=== PATIENT | male | born 1935 | race Caucasian/White ===

== ENCOUNTER → 2020-01-01 | Outpatient (CLI) | payer MEDICARE ==
[2015-04-12 23:00] VITALS: BP 137/82
[~2020-01-01] MED LIST: AMLO10TA8 PO; BENA20TA4 PO; CHOL400T36 PO; DONE10TA7 PO; FURO20TA3 PO; LATA2.5D3 EACHEYE; LOSA100T14 PO; MECL-75 PO; MELO15TA23 PO; MEMA10TA56 PO; PRAV80TA2 PO; TAMS0.4C97 PO
== END | disposition home or self-care (01) ==
LOC: LAB 14:47
PROVIDERS: ATTEND Registered Nurse
DX: Z03.818 Encounter for observation for suspected exposure to other biological agents ruled out (principal)
CPT/HCPCS: 87635

== ENCOUNTER → 2020-01-05 | Day surgery (SDC) | payer MEDICARE ==
[~2020-01-05] MED LIST changes: +IPRATRPIUM/ALBUTEROL 0.5/2.5MG 3 ML NEBU. NEB PRN; +IV RINGERS SOLUTION,LACTATED 1,000 ML IV SCH; +PROPOFOL 10,000 MCG/ML (20ML) VIAL IV ONE
[2020-01-05 11:01] VITALS: BP 132/64
--- NOTE | 2020-01-07 12:06 | PATHOLOGY ---
[facility] Accession Number: [id number] . 01 Material submitted: . PART A: colon - ASCENDING COLON CANCER. Modifiers: ascending PART B: colon - TRANSVERSE POLYP. Modifiers: transverse PART C: colon - SIGMOID POLYP. Modifiers: sigmoid . 01 Clinical history: . None provided . 02 Diagnosis: A. 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 . B. Colon biopsies, transverse colon polyp: - Tubular adenoma showing coagulation artifact. . C. Colon biopsies, sigmoid polyp: - Adenocarcinoma, moderately-well differentiated. . (JPM:richard; 01/06/2020) [facility] 01/06/2020 1621 Local . 02 Comment: Sections of the ascending colon biopsies focally reveal irregular malignant glands infiltrating an inflamed reactive stroma. There are associated segments of tubular adenoma showing focal high-grade dysplasia. . Sections of the transverse colon biopsies reveal a tubular adenoma showing coagulation artifact. There is no evidence of malignancy. . Sections of the sigmoid colon biopsies reveal irregular malignant glands infiltrating an inflamed reactive desmoplastic stroma. A few of the malignant glands are distended with mucin. . The case is also co-reviewed by Dr. Castaneda, who concurs with the diagnosis. . (JPM:richard; 01/06/2020) . This case was prepared and proofread by Dr. Rubin and electronically released by Dr. Castaneda. . 02 Electronically signed: . Sourav Castaneda MD, Pathologist NPI- [id number] . 01 Gross description: . A. The specimen is received in formalin, labeled "Ap Cooken, ascending colon cancer". Received are six segments of pale lai soft tissue ranging in size from 0.2 to 0.3 cm in maximum dimensions. The specimen is submitted entirely in cassette A1. . B. The specimen is received in formalin, labeled "Ap Tayrien, transverse polyp". Received are four segments of pale lai soft tissue ranging in size from 0.4 to 0.6 cm in maximum dimensions. The specimen is submitted entirely in cassette B1. . C. The specimen is received in formalin, labeled "Ap Tayrien, sigmoid polyp". Received is a segment of friable pale lai soft tissue measuring 0.8 cm in maximum dimensions. The specimen is submitted entirely in cassette C1. (CAA; 01/05/2020) QAC/QAC 01/06/2020 1615 Local . 02 Pathologist provided ICD-10: C18.2, D12.3, C18.7 . 02 CPT . 852711, 453121, 271962 Specimen Comment: A courtesy copy of this report has been sent to [phone], [phone] Specimen Comment: [id number] Specimen Comment: Report sent to / DR BUCK Performed at: 01 [facility] [address] [facility] [address], [place] [id number] MD Juan Gomez MD Phone: [phone] Performed at: 02 [facility] [address] [place], [place] [id number] MD Trevor Rubin MD Phone: [phone]
== END | disposition home or self-care (01) ==
LOC: SURG 07:51
PROVIDERS: ATTEND Emergency Medicine
DX: R93.3 Abnormal findings on diagnostic imaging of other parts of digestive tract (principal); C18.2 Malignant neoplasm of ascending colon; C18.7 Malignant neoplasm of sigmoid colon; D12.3 Benign neoplasm of transverse colon; K63.89 Other specified diseases of intestine; E78.5 Hyperlipidemia, unspecified; I10 Essential (primary) hypertension; F03.90 Unspecified dementia, unspecified severity, without behavioral disturbance, psychotic disturbance, mood disturbance, and anxiety; Z79.899 Other long term (current) drug therapy; Z88.0 Allergy status to penicillin; Z88.1 Allergy status to other antibiotic agents; Z98.890 Other specified postprocedural states; Z96.652 Presence of left artificial knee joint
CPT/HCPCS: 45380; 45381; 45385; 88305; J2704; J7120

== ENCOUNTER → 2020-01-08 | Outpatient (CLI) | payer MEDICARE ==
[2020-01-05 11:01] VITALS: BP 132/64
[~2020-01-08] MED LIST changes: +IOHEXOL 240 MG/ML 50ML VIAL. ONE; +IOHEXOL 300 MG/ML 75 ML VIAL. IV ONE; -IPRATRPIUM/ALBUTEROL 0.5/2.5MG 3 ML NEBU. NEB PRN; -IV RINGERS SOLUTION,LACTATED 1,000 ML IV SCH; -PROPOFOL 10,000 MCG/ML (20ML) VIAL IV ONE
--- NOTE | 2020-01-08 11:43 | RAD ---
CT CHEST ABD PELVIS W/CONTRAST Clinical Indication: Colon cancer COMPARISON: CT abdomen pelvis 01/26/2016 TECHNIQUE: Multiple contiguous axial images were obtained throughout the chest, abdomen, and pelvis with the use of IV contrast. Axial images were reformatted into coronal and sagittal planes. 75 mL mL Omnipaque 300 was administered. One or more of the following dose reduction techniques were utilized: Automated exposure control (AEC), Adjustment of mA and/or kV according to patient size, Use of iterative reconstruction technique such as ASiR, CT scan done according to ALARA and image gently/image wisely. Findings: The thyroid is symmetric. Enlarged right hilar lymph node measuring 1.2 cm short axis (series 4 image 60). No enlarged mediastinal lymph nodes. Atherosclerosis of the thoracic aorta. Normal cardiac size. No pericardial effusion. Coronary artery atherosclerotic disease. The central airways are patent. No pulmonary mass or consolidation. Bibasilar dependent and subsegmental atelectasis. Trace right greater than left pleural effusions. There is no pneumothorax. The liver, gallbladder, spleen, pancreas, and adrenal glands are unremarkable. No hydronephrosis or suspicious renal lesions. There are a few conspicuous mesenteric and retroperitoneal lymph nodes which appear stable since 2016. There is no evidence of free intraperitoneal fluid or pneumoperitoneum. Normal caliber small bowel. Irregular colonic wall thickening involving the cecum. 2 cm elongated density in the transverse colon which may represent a foreign body. Normal appendix. The bladder is unremarkable. Dystrophic prosthetic calcification with presumed postsurgical changes of TURP. There is no significant pelvic ascites. No significant iliac or inguinal adenopathy is identified. Moderate thoracic and severe lumbar degenerative disc disease. Moderate to severe lumbar spinal canal stenosis and neural foraminal narrowing. No aggressive lytic or blastic osseous lesions. Small left greater than right fat-containing inguinal hernias. IMPRESSION: 1. Irregular colonic wall thickening involving the cecum. Correlate with direct visualization. 2. There are a few conspicuous mesenteric and retroperitoneal lymph nodes which appear stable since exam of 2016. 3. Mildly enlarged right hilar lymph node of uncertain clinical significance. Attention on follow-up imaging. Electronically signed by: Noah Guthrie MD (01/08/2020 11:40 AM) [id number]
== END | disposition home or self-care (01) ==
LOC: CT 09:34
PROVIDERS: ATTEND Emergency Medicine
DX: C18.2 Malignant neoplasm of ascending colon (principal); J98.11 Atelectasis; J90 Pleural effusion, not elsewhere classified; M51.35 Other intervertebral disc degeneration, thoracolumbar region; M48.061 Spinal stenosis, lumbar region without neurogenic claudication; K40.90 Unilateral inguinal hernia, without obstruction or gangrene, not specified as recurrent; R59.0 Localized enlarged lymph nodes; I70.0 Atherosclerosis of aorta; I25.10 Atherosclerotic heart disease of native coronary artery without angina pectoris; K63.5 Polyp of colon
CPT/HCPCS: 71260; 74177; Q9967

== ENCOUNTER → 2020-01-25 | Outpatient (CLI) | payer MEDICARE ==
[2020-01-05 11:01] VITALS: BP 132/64
[~2020-01-25] MED LIST changes: -IOHEXOL 240 MG/ML 50ML VIAL. ONE; -IOHEXOL 300 MG/ML 75 ML VIAL. IV ONE
[2020-01-25 13:08] LABS: CALCIUM 9.3 mg/dL (8.5-10.1); GFR 71.2; POTASSIUM 4.4 mmol/L (3.5-5.1)
[2020-01-25 13:39] LABS: BILIRUBIN,URINE NEG (NEG); CLARITY,URINE HAZY; COLOR,URINE YELLOW; GLUCOSE,URINE NEG (NEG)
[2020-01-25 13:40] LABS: BACTERIA,URINE FEW /HPF (0-FEW); HYALINE CASTS, URINE FEW /HPF; NITRITE,URINE NEG (NEG); SQUAMOUS EPITHELIAL CELL,UR FEW /LPF; UROBILINOGEN,URINE 0.2 mg/dL (0.2 mg/dL); WBC,URINE 20-40 /HPF (0-4)
== END ==
LOC: LAB 12:06
PROVIDERS: ATTEND Internal Medicine Nephrology
DX: R80.9 Proteinuria, unspecified (principal); K21.9 Gastro-esophageal reflux disease without esophagitis
CPT/HCPCS: 36415; 80048; 81001; 87086

== ENCOUNTER 2020-03-05 06:30 | Emergency (ER) | payer MEDICARE ==
[~2020-03-05] VITALS: Ht 180.3 cm; Wt 77.7 kg
--- NOTE | 2020-03-05 06:40 | PHYS DOC ---
Past History Past Medical History: Cancer (colon), Dementia, High Cholesterol, Hypertension Past Medical History Limited secondary to dementia Past Surgical History: Colectomy Additional Past Surgical Histo: Colostomy Past Surgical History Limited secondary to dementia Smoking: Non-smoker Alcohol Use: None Drug Use: None Social History Limited secondary to dementia General Adult EDM: Chief Complaint: ABDOMINAL PAIN HPI: HPI: 84-year-old male with past medical history of dementia presents with report of chest pain. Spouse reports patient awoke with symptoms at approximately 0500. Patient does have history of recently diagnosed colon cancer status post colectomy with ostomy. Denies known trauma. Denies fever chills. Denies cough or shortness of air. Denies vomiting. Spouse denies known exposure of patient to COVID-19. History of present illness limited secondary to dementia. Review of Systems: Review of Systems: Constitutional: Denies fever Respiratory: Denies cough or shortness of breath Cardiovascular: Denies chest pain GI: Reports abdominal pain; denies vomiting Integument: Denies rash Review of systems limited secondary to dementia Heart Score: HEART Score for Chest Pain: HEART Score for Chest Pain Response (Comments) Value History Moderately Suspicious 1 ECG Normal 0 Age > 65 2 Risk Factors 1 or 2 Risk Factors 1 Troponin < Normal Limit 0 Total 4 Risk Factors: Risk Factors: DM, Current or recent (<one month) smoker, HTN, HLP, family history of CAD, obesity. Risk Scores: Score 0 - 3: 2.5% MACE over next 6 weeks - Discharge Home Score 4 - 6: 20.3% MACE over next 6 weeks - Admit for Clinical Observation Score 7 - 10: 72.7% MACE over next 6 weeks - Early Invasive Strategies Allergies: Allergies: Allergies Coded Allergies Type Severity Reaction Last Updated Verified Penicillins Allergy Intermediate 04/12/15 No Physical Exam: PE: Constitutional: Well developed, well nourished HENT: Normocephalic, atraumatic Eyes: Conjunctiva normal, no discharge Neck: Normal range of motion, no tenderness Lungs & Thorax: No respiratory distress, equal chest rise and fall Abdomen: Soft, epigastric tenderness, colostomy bag with output noted to RLQ Skin: Warm, dry, no erythema, no rash Extremities: No tenderness, ROM intact, mild edema noted to left hand Neurologic: Alert and oriented x name only, no focal deficits noted Psychologic: Affect normal, judgment abnormal EKG: EKG: @0641 NSR at 83bpm, NO ST elevation, QRS 80ms, QT/QTc 348/409ms Radiology/Procedures: Radiology/Procedures: [] Course & Med Decision Making: Course & Med Decision Making Pertinent Labs and Imaging studies reviewed. (See chart for details) Patient with past medical history of dementia and history of recent colon cancer status post colectomy with ostomy presents with report of substernal/epigastric abdominal pain upon waking this morning at approximately 0500. Ostomy appears to have good output. Patient does have some cardiac risk factors including hypertension and hypercholesterolemia. EKG stable. Labs obtained and posted to chart. Symptomatic treatment provided. CTA chest and CT abdomen/pelvis with findings consistent for bilateral pulmonary emboli as well as thrombus of superior mesenteric vein. Radiologist also concerned for epiploic appendigitis. WBC and lactic acid WNL. Coags unremarkable. Heparin bolus/gtt initiated. Discussed findings with patient and spouse and recommendation that patient would require admission. Spouse requests that patient be transfered to [facility] for admission (as all his doctors are there). There is possible need for interventional radiology as well. Utilized [facility]'s transfer line. Discussed case with Dr. Esther Gilliam, who is accepting of transfer to [facility]. Discussed findings and plan with patient and family, who acknowledge underst anding and agreement. Haydee Disclaimer: Haydee Disclaimer: This electronic medical record was generated, in whole or in part, using a voice recognition dictation system. Departure Departure: Impression: Primary Impression: Bilateral pulmonary embolism Additional Impressions: Superior mesenteric vein thrombosis Epiploic appendagitis Disposition: TRANSFER OTHER ([facility]- Dr. Esther Gilliam accepting) Condition: GUARDED Referrals: MAR BUCK MD (PCP) Justification of Admission: Justification of Admission: Justification of Admission Dx: Yes Comments: Bilateral PE Critical Care Time Critical care time was 30 minutes which includes time at bedside, spent in discussion of patient's care with specialists and/or family members, with interpretation of laboratory and/or radiological studies and is exclusive of procedures. COURTNEY CHACON DO Mar 05, 2020 06:39
[2020-03-05 06:56] LABS: BASO % 0 % (0-3); EOS # 0.1 x10^3/uL (0.0-0.7); EOS % 2 % (0-3); HEMATOCRIT 33.1 % (39.0-53.0); HEMOGLOBIN 10.8 g/dL (13.0-17.5); LYMPH # 1.6 x10^3/uL (1.0-4.8); LYMPH % 28 % (24-48); MEAN CORPUSCULAR HEMOGLOBIN 27 pg (25-35); MEAN CORPUSCULAR HGB CONC 33 g/dL (31-37); MEAN CORPUSCULAR VOLUME 83 fL (79-100); MONO # 0.5 x10^3/uL (0.0-1.1); MONO % 8 % (0-9); NEUT # 3.5 x10^3uL (1.8-7.7); NEUT % 61 % (31-73); PLATELET COUNT 309 x10^3/uL (140-400); RED BLOOD COUNT 3.99 x10^6/uL (4.30-5.70); WHITE BLOOD COUNT 5.8 x10^3/uL (4.0-11.0)
[2020-03-05] MEDS ORDERED: FAMOTIDINE 20 MG/2 ML VIAL IVP ONE (07:00)
[2020-03-05] MEDS ORDERED: ONDANSETRON PF 4 MG/2 ML VIAL. IVP ONE (07:00)
[2020-03-05] MEDS ORDERED: IV NORMAL SALINE 1,000ML 1,000 ML IV ONE (07:00)
[2020-03-05 07:01] LABS: ANION GAP 5 (6-14); BLOOD UREA NITROGEN 16 mg/dL (8-26); BUN/CREATININE RATIO 16 (6-20); CALCIUM 9.5 mg/dL (8.5-10.1); CARBON DIOXIDE 28 mmol/L (21-32); CHLORIDE 106 mmol/L (98-107); GFR 71.2; GLUCOSE 99 mg/dL (70-99); POTASSIUM 4.3 mmol/L (3.5-5.1); SODIUM 139 mmol/L (136-145)
[2020-03-05] MEDS ORDERED: CONTRAST GIVEN MC PRN (07:15)
[2020-03-05] MEDS ORDERED: IOHEXOL 350 MG/ML 100 ML VIAL. IV ONE (07:15)
[2020-03-05 07:28] LABS: ALBUMIN 1.5 g/dL (3.4-5.0); ALBUMIN/GLOBULIN RATIO 0.5 (1.0-1.7); ALK PHOS 146 U/L (46-116); ALT (SGPT) 20 U/L (16-63); AST (SGOT) 11 U/L (15-37); TOTAL BILIRUBIN 0.3 mg/dL (0.2-1.0); TOTAL PROTEIN 4.6 g/dL (6.4-8.2)
[2020-03-05 07:30] LABS: LIPASE 515 U/L (73-393)
[2020-03-05] MEDS ORDERED: HEPARIN for IV BOLUS 10,000 UNIT/10 ML VIAL. IV ONE (08:15)
[2020-03-05] MEDS ORDERED: HEPARIN 25,000UTS/250ML PREMIX 250 ML IV PRN (08:15)
--- NOTE | 2020-03-05 08:20 | RAD ---
PQRS Compliance Statement: One or more of the following individualized dose reduction techniques were utilized for this examination: 1. Automated exposure control 2. Adjustment of the mA and/or kV according to patient size 3. Use of iterative reconstruction technique CT ANGIO CHEST W ABD PEL W/ 03/05/2020 7:03 AM INDICATION: Substernal and epigastric pain. COMPARISON: CT abdomen/pelvis 01/26/2016 TECHNIQUE: Multiple axial CT images of the chest, abdomen and pelvis were obtained after the intravenous administration of nonionic contrast. Maximum intensity projection images are provided. Coronal and sagittal reformats are provided. FINDINGS: Subcentimeter right thyroid nodule is identified. Precarinal lymph node measures 11 mm. Right hilar lymph node measures 10 mm. Left hilar lymph node measures 7.5 mm (series 5, image 68). Nonenlarged bilateral axillary lymph nodes are identified. Heart size is borderline enlarged. Trace pericardial fluid may be physiologic. Thoracic aorta is normal in course and caliber. There is adequate opacification of pulmonary arterial system to. Filling defects are identified throughout the bilateral lobar, segmental and subsegmental pulmonary arteries. Thrombus is not identified within the main and central pulmonary arteries. Three-vessel coronary artery vascular calcific effusions are present. No definite evidence for right heart strain by CT. There is mild pulmonary vascular congestion. Bibasilar subsegmental atelectasis is noted. Trace of pleural effusion. No pneumothorax. Minimal consolidative changes left lung base could represent atelectasis versus developing pulmonary infarct. Liver enhances homogeneously. Mild hypoattenuation along the fissure of the ligamentum teres is suggestive of focal hepatic steatosis. Filling defect within the anterior branch of the right portal vein is suggestive of thrombus. Main portal vein and left portal vein appear patent. Spleen, bilateral adrenal glands and gallbladder are normal in appearance. Mild fatty atrophy of the pancreas. Coarse calcifications within the pancreas could reflect sequela of chronic pancreatitis. Abdominal aorta is normal in course and caliber. Left external iliac lymph node measures 7.5 mm. Right common iliac lymph node measures 8 mm. Left periaortic lymph node measures 8 mm (series 9, image 62). Right renal cyst measures 2.3 cm. No suspicious renal mass. No hydronephrosis. There is thrombus identified within the right superior mesenteric vein sensitive adjacent inflammation suggestive of thrombophlebitis. Rectal stump is present. Right lower quadrant ostomy is noted. There are no dilated bowel loops. Within the right paracolic gutter, there are areas of inflamed fat attenuation measuring up to 2.6 x 2.4 cm which could reflect fat necrosis versus epiploic appendagitis. Urinary bladder is within normal limits given degree of distention. Defect is identified with coarse calcifications prostate gland. Small fat-containing inguinal hernias. Osteopenia without suspicious osseous lesion. Intramuscular lipoma identified in the right hip measuring 1.8 cm. Fluid within the right trochanteric bursa suggestive of trochanteric bursitis. IMPRESSION: 1. Acute bilateral pulmonary emboli involving the lobar, segmental and subsegmental pulmonary arteries bilaterally no CT evidence for right heart strain. 2. Mild interstitial changes are identified the lung bases with more consolidative change at the left lung base. Consideration may be given for atelectasis versus developing pulmonary infarct. 3. No pathologically enlarged thoracic lymph nodes. 4. Superior mesenteric vein thrombophlebitis. Thrombus is identified within the anterior branch right portal vein. 5. No bowel obstruction. Colectomy changes are identified with rectal pouch. Right lower quadrant ostomy is identified. Areas of inflamed fat are identified within the right paracolic gutter consideration may be given for fat necrosis versus epiploic appendagitis. 6. Right trochanteric bursitis. FOR INTERNAL CODING PURPOSES Critical result: Findings discussed with COURTNEY CHACON at 03/05/2020 8:05 AM. RESULT CODE: (C) Electronically signed by: Jeni Mahoney MD (03/05/2020 8:17 AM) [facility]
[2020-03-05 09:30] VITALS: BP 140/78
--- NOTE | 2020-03-07 11:38 | EKG ---
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
== END 2020-03-05 10:03 | disposition short-term general hospital (02) ==
LOC: ER 06:30
DX: I26.99 Other pulmonary embolism without acute cor pulmonale (principal); K55.059 Acute (reversible) ischemia of intestine, part and extent unspecified; K63.89 Other specified diseases of intestine; E78.00 Pure hypercholesterolemia, unspecified; I10 Essential (primary) hypertension; F03.90 Unspecified dementia, unspecified severity, without behavioral disturbance, psychotic disturbance, mood disturbance, and anxiety; Z93.3 Colostomy status; Z88.0 Allergy status to penicillin
CPT/HCPCS: 36415; 71275; 74177; 80053; 82553; 83605; 83690; 84484; 85025; 85610; 85730; 93005; 96365; 96375; 96376; 99285; J1644; J2405; J3490; J7030; Q9967